=== PATIENT | male | born 1975 | race African-American/Black ===

== ENCOUNTER 2022-05-18 11:00 | Emergency (ER) | payer BC, SELFPAY ==
--- NOTE | ~2022-05-18 | XR_ITS ---
EXAMINATION: XR wrist LT min 3V DATE: 05/18/2022 11:28 INDICATION: Left wrist injury. TECHNIQUE: 4 views of left wrist were obtained. COMPARISON: None. FINDINGS: Bone alignment is normal. No fracture. There is mild osteoarthritis of first carpometacarpa l joint. IMPRESSION: 1. Mild osteoarthritis of first carpometacarpal joint. Reviewed, dictated and finalized at location A. ARE INTERVIEWER
[2022-05-18 11:06] VITALS: BP 175/98; PULSE 82; RESP 20; TEMP 36.9; O2SAT 100
--- NOTE | 2022-05-18 11:15 | ED.UPPEXIN ---
HPI - Extremity Injury (Upper) General Chief Complaint: Extremity Injury, Upper Stated Complaint: Left arm injury Source: patient and RN notes reviewed History of Present Illness HPI narrative: 47-year-old male presents to urgent care complaints of left wrist pain that radiates up his forearm with certain movements. Patient states Tuesday night he caught someone falling and resulted in falling together on the ground. Patient states the other person fell onto his left wrist. Denies any head injury or LOC. Patient denies any numbness or tingling. Patient has taken Advil with good relief. Some parts of this dictation were generated by voice recognition software and may contain typographical and/or grammatical inaccuracies. Related Data Home Medications Medication Instructions Recorded Confirmed No Home Medications 05/18/22 05/18/22 Allergies Allergy/AdvReac Type Severity Reaction Status Date / Time No Known Allergies Allergy Verified 05/18/22 11:09 Review of Systems Review of Systems: CONSTITUTIONAL: Denies fever, chills, or sweats. EYES: Denies visual changes, redness, or discharge. ENT: Denies otalgia and sore throat CARDIOVASCULAR: Denies chest pain, palpitations, or edema. RESPIRATORY: Denies cough or dyspnea. GASTROINTESTINAL: Denies abdominal pain, nausea, vomiting, or diarrhea. GENITOURINARY: Denies dysuria or hematuria. SKIN: Denies rash or itching. MUSCULOSKELETAL: Left wrist pain NEUROLOGIC: Denies headache, numbness, or weakness. PMFSH Comments At the time of my signature, I reviewed and agree with the nursing past medical, surgical, social, and family history. There is no relevant family history pertinent to the patient complaint. Exam Narrative: GENERAL: This is a well-nourished, well-developed patient, in no apparent distress. HEAD: normocephalic, atraumatic. EYES: PERRL. Sclera clear/white. Vision is grossly intact. EARS: External ears normal, auditory canals clear and without drainage, TMs normal without perforation. Hearing grossly intact. NOSE: External nose normal with no obvious nasal discharge, nares without redness, no rhinorrhea. THROAT: Mucous membranes moist, posterior pharynx clear. NECK: Neck supple, non-tender without lymphadenopathy, masses or thyromegaly. CARDIOVASCULAR: Regular rate. RESPIRATORY: No respiratory distress GASTROINTESTINAL: Abdomen soft, non-tender, nondistended. Bowel sounds are active. No hepato-splenomegaly, or palpable masses. No guarding. SKIN: warm, intact with no suspicious lesions or rash, good texture and turgor. NEURO: awake, alert, and oriented to person, place and time. There were no obvious focal neurologic abnormalities. EXTREMITIES: No clubbing, cyanosis, or edema. No joint tenderness, effusion, or edema noted. Course Course Level of Care: Express Care Visit Vital Signs Vital signs: Vital Signs Temperature 98.5 F 05/18/22 11:06 Pulse Rate 82 05/18/22 11:06 Respiratory Rate 20 05/18/22 11:06 Blood Pressure 175/98 H 05/18/22 11:06 Pulse Oximetry 100 05/18/22 11:06 Oxygen Delivery Room Air 05/18/22 11:06 Temperature 98.5 F 05/18/22 11:06 Pulse Rate 82 05/18/22 11:06 Respiratory Rate 20 05/18/22 11:06 Blood Pressure 175/98 H 05/18/22 11:06 Pulse Oximetry 100 05/18/22 11:06 Oxygen Delivery Room Air 05/18/22 11:06 Reviewed. Patient is informed that they may have pre-hypertension or hypertension based on a blood pressure reading in the department. I recommend the patient call the primary care provider listed on their discharge instructions or a physician of their choice this week to arrange follow-up for further evaluation of possible pre-hypertension or hypertension. MDM - Extremity Injury (Upper) MDM Narrative Medical decision making narrative: Use the rice method at home. May take ibuprofen Tylenol if needed for pain. Follow-up with hand specialist in 1 week if symptoms persist. Differential Diagnosis
== END 2022-05-18 12:02 | disposition home or self-care (01) ==
PROVIDERS: Emergency Provider Nurse Practitioner Family; PCP Emergency Medicine
DX: S63.502A Unspecified sprain of left wrist, initial encounter (principal); W18.39XA Other fall on same level, initial encounter
CPT/HCPCS: 73110; 99203; G0463